=== PATIENT | female | born 1950 | race Caucasian/White ===

== ENCOUNTER 2019-08-25 14:49 | Outpatient (CLI) | payer MEDICARE, OTHER, SELFPAY ==
--- NOTE | 2019-08-25 14:52 | MM_ITS ---
WS: [id number] BILATERAL SCREENING DIGITAL MAMMOGRAM WITH CAD HISTORY: SCREENING COMPARISON: 10/18/2017 and 03/07/2016 Bilateral CC and MLO views submitted. Computer aided detection analyzed. Breast composition: The breasts are heterogeneously dense, which may obscure small masses. No suspici ous masses, microcalcifications or architectural distortion. Dense fibroglandular tissue in the anter ior breast. Benign scattered calcifications. No distortion or suspicious cluster of calcifications. MM/[id number] IMPRESSION: BI-RADS: 2-Benign FOLLOW UP: 1 Year Follow-up
== END 2019-08-25 14:50 | disposition home or self-care (01) ==
LOC: RADSHAW 14:49
PROVIDERS: Family Provider Family Medicine; PCP Physician Assistant; Visit Provider Physician Assistant
DX: Z12.31 Encounter for screening mammogram for malignant neoplasm of breast (principal)
CPT/HCPCS: 77067

== ENCOUNTER 2019-12-18 10:42 | Outpatient (RCR) | payer MEDICARE, OTHER, SELFPAY | END 2020-01-05 23:59 | disposition home or self-care (01) | LOC: SPT 10:42 | PROVIDERS: PCP Physician Assistant; Referring Provider Physician Assistant; Visit Provider Physician Assistant | DX: M76.30 Iliotibial band syndrome, unspecified leg (principal) | CPT/HCPCS: 97161; 97530 ==

== ENCOUNTER 2020-10-31 11:03 | Outpatient (CLI) | payer MEDICARE, OTHER, SELFPAY ==
--- NOTE | 2020-10-31 11:08 | XR_ITS ---
WS: [id number] Exam: XR DEXA axial skeleton* [id number] Date/Time of Exam: 10/31/2020 11:17 AM Reason For Exam: POST MENOPAUSAL DEXA BONE DENSITOMETRY [employer] The L1-L4 bone mineral density measures 1.230 g/cm2. This corresponds to a T score of 0.4 and Z score of 2.1. Left femoral neck bone mineral density measures 1.037 g/cm2. This corresponds to T score of 0.2 and Z score of 1.7. Right femoral neck bone mineral density measures 1.045 g/cm2. This corresponds to a T score of 0.3 an d Z score of 1.8. Mean femoral neck bone mineral density measures 1.041 g/cm2. This corresponds to a T score of 0.3 and Z score of 1.7. XR/XR DEXA axial skeleton* [id number] IMPRESSION: Bone mineral density lies in the normal range. No osteopenia is observed at th is time. Refer to detailed summary.
== END 2020-10-31 11:04 | disposition home or self-care (01) ==
PROVIDERS: PCP Physician Assistant; Visit Provider Physician Assistant
DX: Z78.0 Asymptomatic menopausal state (principal)
CPT/HCPCS: 77080

== ENCOUNTER 2020-12-14 08:49 | Outpatient (CLI) | payer MEDICARE, OTHER, SELFPAY ==
--- NOTE | 2020-12-14 08:56 | MM_ITS ---
WS: [id number] BILATERAL DIGITAL SCREENING MAMMOGRAPHY WITH CAD CLINICAL INFORMATION: SCREENING HISTORY: Screening mammogram. No current complaints. COMPARISON: August 25, 2019 TECHNIQUE: Bilateral CC and MLO views. FINDINGS: The breasts are composed of heterogeneous fibroglandular density tissue, which can limit the detectio n of small underlying mass lesions. Punctate and lucent centered calcifications. Dystrophic calcifica tions. No suspicious mass, asymmetry, calcifications, or architectural distortion. No evidence of mal ignancy. MM/[place] [id number] IMPRESSION: BI-RADS: 2-Benign FOLLOW UP: 1 Year Follow-up Recommend return to annual screening mammography.
== END 2020-12-14 08:50 | disposition home or self-care (01) ==
LOC: RADSHAW 08:52
PROVIDERS: PCP Physician Assistant; Visit Provider Physician Assistant
DX: Z12.31 Encounter for screening mammogram for malignant neoplasm of breast (principal)
CPT/HCPCS: 77067

== ENCOUNTER 2023-01-02 08:33 | Outpatient (CLI) | payer MEDICARE, OTHER, SELFPAY ==
--- NOTE | 2023-01-02 | MM_ITS ---
WS: [id number] VIEWS: MLO and CC views both breasts. 3D digital tomosynthesis is also included in this exam. Comparison made with prior exam of 08/06/2011, 12/12/2012, 03/07/2016, 10/18/2017, 08/25/2019, 12/14/2020.. Findings: There was no sign of mass, architectural distortion or suspicious calcification in either breast. Th e breasts are heterogeneously dense which may obscure small masses MM/[place] [id number] Impression: BI-RADS: 2-Benign finding. FOLLOW-UP: 1 Year Follow-up This mammogram was also analyzed by the Computer Aided Detection System [employer]2 Imag [employer] Circular Knitter Helper.
== END 2023-01-02 08:34 | disposition home or self-care (01) ==
PROVIDERS: PCP Physician Assistant; Visit Provider Physician Assistant
DX: Z12.31 Encounter for screening mammogram for malignant neoplasm of breast (principal)
CPT/HCPCS: 77063; 77067

== ENCOUNTER 2023-02-05 14:09 | Outpatient (CLI) | payer MEDICARE, OTHER, SELFPAY ==
--- NOTE | 2023-02-05 14:28 | XR_ITS ---
WS: [id number] DEXA (DUAL ENERGY X-RAY ABSORPTIOMETRY) Bone mineral density was performed using a [employer] machine. HISTORY: POSTMENOPAUSAL COMPARISON: 10/31/2020 Lumbar spine BMD (L1-L4): 1.247 g/cm2 T score: 0.6 Z score: 2.3 Total hip BMD: Left: 1.017 g/cm2. T score: 0.1 Z score: 1.7 Right: 1.032 g/cm2. T score: 0.2 Z score: 1.8 10 year probability of a major osteoporotic fracture is 8.8%. Compared to the prior study from 10/31/2020. Lumbar spine bone mineral density has increased by 1.4%. Bilateral hips bone mineral density has decreased by 1.5%. XR/XR DEXA axial skeleton* [id number] IMPRESSION: NORMAL BONE MINERAL DENSITY based upon the WHO classification for females. No significant change in bone mineral density since the most recent exam.
== END 2023-02-05 14:10 | disposition home or self-care (01) ==
LOC: RAD 14:16
PROVIDERS: PCP Physician Assistant; Visit Provider Physician Assistant
DX: Z78.0 Asymptomatic menopausal state (principal)
CPT/HCPCS: 77080

== ENCOUNTER 2024-09-03 21:29 | Emergency (ER) | payer MEDICARE, OTHER, SELFPAY ==
[2024-09-03 21:32] VITALS: BP 150/80; PULSE 96; TEMP 36.5; O2SAT 98; BMI 25.4
--- NOTE | 2024-09-03 22:26 | W.ED.ABDPA2 ---
HPI - Abdominal Pain General: Chief Complaint: Abdominal Pain Stated Complaint: severe abd pain sudden 2hrs Time Seen by Provider: 09/03/24 21:38 History of Present Illness: 74-year-old female who presents emergency room with epigastric pain that came on suddenly. This started couple hours ago. Has become much worse. She is very tender in her epigastric region. She is never had any abdominal surgeries. No nausea or vomiting. No diarrhea. No chest pain. No shortness of breath. No fever. No cough. Related Data Home Medications ?Medication ?Instructions ?Recorded ?Confirmed amlodipine 5 mg tablet 5 mg PO DAILY 07/30/21 07/30/21 amoxicillin 500 mg tablet 500 mg PO BID 07/30/21 07/30/21 glucosamine-chondroitin 250 mg-200 2 tab PO TID 07/30/21 07/30/21 mg tablet (Osteo Bi-Flex) lutein 20 mg tablet 20 mg PO DAILY 07/30/21 07/30/21 metoprolol succinate 50 mg 75 mg PO DAILY 07/30/21 07/30/21 tablet,extended release 24 hr (Toprol XL) quinapril 20 1 tab PO DAILY 07/30/21 07/30/21 mg-hydrochlorothiazide 12.5 mg tablet simvastatin 20 mg tablet 20 mg PO DAILY 07/30/21 07/30/21 Previous Rx's ?Medication ?Instructions ?Recorded acyclovir 800 mg tablet 800 mg PO .COMPLEX 7 days #35 tabs 07/30/21 Allergies Allergy/AdvReac Type Severity Reaction Status Date / Time No Known Allergies Allergy Verified 09/03/24 21:36 Review of Systems Narrative: Constitutional symptoms: Negative except as documented in HPI. Skin symptoms: Negative except as documented in HPI. Eye symptoms: Negative except as documented in HPI. ENMT symptoms: Negative except as documented in HPI. Respiratory symptoms: Negative except as documented in HPI. Cardiovascular symptoms: Negative except as documented in HPI. Gastrointestinal symptoms: Negative except as documented in HPI. Genitourinary symptoms: Negative except as documented in HPI. Musculoskeletal symptoms: Negative except as documented in HPI. Neurologic symptoms: Negative except as documented in HPI. Psychiatric symptoms: Negative except as documented in HPI. Endocrine symptoms: Negative except as documented in HPI. PFS ED PFSH: Social History (Updated 07/30/21 @ 10:39 by Alonso Garnett LPN) Smoking and tobacco/nicotine status: never used tobacco/nicotine Alcohol intake: current Alcohol intake frequency: holidays/special occasions only Physical Exam Narrative: EXAM NARRATIVE: General: Alert, no acute distress. Skin: Warm, dry. Head: Normocephalic, atraumatic. Neck: Supple, trachea midline. Eye: Extraocular movements are intact. Ears, nose, mouth and throat: mucosa moist. Cardiovascular: Regular, Normal peripheral perfusion. Respiratory: Lungs are clear to auscultation, respirations are non-labored, breath sounds are equal, Symmetrical chest wall expansion. Gastrointestinal: Soft, patient is extremely tender in her epigastric region, Non distended Musculoskeletal: Normal ROM, no deformity. Neurological: Alert and oriented, No focal neurological deficit observed. Psychiatric: Cooperative, appropriate mood & affect. Course Vital Signs: Vital signs: Vital Signs Temperature 97.7 F 09/03/24 21:32 Pulse Rate 96 09/03/24 21:32 Blood Pressure 150/80 09/03/24 21:32 Pulse Oximetry 98 09/03/24 21:32 Oxygen Delivery Me thod Room Air 09/03/24 21:32 MDM - Abdominal Pain Medical Decision Making Medical decision making: Differential diagnosis including but not limited to and based on the above HPI, review of systems and physical exam: In this patient with epigastric pain differential would include cholelithiasis or cholecystitis. Hepatitis. Diverticulitis. Constipation. UTI. colitis. small bowel obstruction. crohn's flare. pancreatitis. gastritis. peptic ulcer. also concern for acute cardiac event. Orders placed to evaluate differential diagnosis based on the above differential, HPI and physical exam EKG: Time 12:23 AM. Rate 81. Normal sinus rhythm, No ST-T changes, no ectopy, normal MS & QRS intervals, This was reviewed and interpreted by myself the ER physician at 12:30 AM Lab Review: Laboratory results were reviewed and interpreted by myself the emergency room physician. Mild leukocytosis with white count 12. No anemia. No renal failure. Lipase is negative. Liver enzymes are normal. Urinalysis shows no signs of infection. Flu COVID and RSV are negative. CT of the abdomen pelvis with contrast: Cystic lesions in the liver. 6.5 cm cyst in the left hepatic lobe. There is also a lesion centrally in the liver may just be a focal fatty infiltration but neoplasm cannot be ruled out. MRI as an outpatient. I discussed these findings with the patient. No acute processes. This was reviewed and interpreted by myself the emergency room physician. I also reviewed the radiology report. I reviewed the patient's medical record. Reexamination: Pain is almost completely resolved. She reports that it still hurts some when she pushes or moves. No vomiting. We discussed findings. Discussed that she needs follow-up on the findings in her liver. Assessment and plan: Epigastric pain ? Morphine and Zofran in the emergency room with improvement of symptoms. - Discharged home - Discussed plan with patient. Answered any questions. - Evaluation and treatment of this problem were appropriate in the emergency setting. Lab Data 09/03/24 22:20 09/03/24 22:20 Labs/Radiology: Radiology Impressions Abdomen/Pelvis CT 09/03/24 23:03 IMPRESSION: 1. Irregular peripheral and somewhat geographic hypoattenuating 2.4 x 3.0 cm lesion centrally in the liver involving segments 4 and 8. While this could represent focal fatty infiltration, malignant neoplasm is in the differential. Further evaluation with nonemergent MRI liver protocol without and with contrast is recommended. 2. 6.5 cm cyst located laterally in the left hepatic lobe. 3. No evidence of acute abdominal or pelvic process. COMMENTS: Consistent with the [employer] [employer]'s Incidental Findings Committee white paper (J Am Lois Radiol 2018): Any incidental renal lesion less than 1 cm or classified as too small to characterize, or any incidental cystic renal lesion characterized as simple-appearing, is likely benign. No follow-up imaging is recommended for these lesions per consensus recommendations based on imaging criteria. Laboratory Results WBC 11.84 10^3/uL (3.29-11.43) H 09/03/24 22:20 RBC 6.00 10^6/uL (3.85-5.65) H 09/03/24 22:20 Hgb 16.50 g/dL (11.27-16.99) 09/03/24 22:20 Hct 47.7 % (36-47) H 09/03/24 22:20 MCV 79.5 fl (85-98) L 09/03/24 22:20 MCH 27.5 pg (27-33) 09/03/24 22:20 MCHC 34.6 g/dL (30-55) 09/03/24 22:20 RDW 13.0 % (12.1-15.1) 09/03/24 22:20 Plt Count 285 10^3/cmm (157-399) 09/03/24 22:20 MPV 8.3 fL (7.4-10.4) 09/03/24 22:20 Neut % (Auto) 70.8 % 09/03/24 22:20 Lymph % (Auto) 19.3 % 09/03/24 22:20 [place] % (Auto) 8.0 % 09/03/24 22:20 Eos % (Auto) 1.0 % 09/03/24 22:20 Baso % (Auto) 0.5 % 09/03/24 22:20 Neut # (Auto) 8.37 10^3/uL (1.8-7.7) H 09/03/24 22:20 Lymph # (Auto) 2.3 10^3/uL (0.8-4.8) 09/03/24 22:20 [place] # (Auto) 1.0 10^3/uL (0.2-0.9) H 09/03/24 22:20 Eos # (Auto) 0.1 10^3/uL (0.0-0.8) 09/03/24 22:20 Baso # (Auto) 0.1 10^3/uL (0.0-0.1) 09/03/24 22:20 Nucleated RBC % (auto) 0 % 09/03/24 22:20 Nucleated RBCs # 0.0 /100WBC 09/03/24 22:20 Sodium 131 mmol/L (136-145) L 09/03/24 22:20 Potassium 3.3 mmol/L (3.5-5.1) L 09/03/24 22:20 Chloride 91 mmol/L (98-107) L 09/03/24 22:20 Carbon Dioxide 23 mmol/L (22-29) 09/03/24 22:20 Anion Gap 20.3 (5-19) H 09/03/24 22:20 BUN 10 mg/dL (8-23) 09/03/24 22:20 Creatinine 0.6 mg/dL (0.5-0.9) 09/03/24 22:20 GFR Calculation Not Reportable 09/03/24 22:20 Glucose 230 mg/dL (65-115) H 09/03/24 22:20 Calculated Osmolality 278 mOsm/kg (285-295) L 09/03/24 22:20 Lactic Acid 3.6 mmol/L (0.5-2.2) H 09/03/24 22:20 Lactic Acid (Sepsis) 3.2 mmol/L (0.5-2.2) H 09/04/24 00:33 Calcium 10.1 mg/dL (8.5-10.5) 09/03/24 22:20 Total Bilirubin 1.1 mg/dL (0.15-1.2) 09/03/24 22:20 AST 19 U/L (0-32) 09/03/24 22:20 ALT 20 U/L (0-33) 09/03/24 22:20 Alkaline Phosphatase 84 U/L (35-105) 09/03/24 22:20 Troponin T Baseline 12 ng/L (0-10) H 09/03/24 22:20 Troponin T 120 Minute 12.98 ng/L (0-10) H 09/04/24 00:33 Delta Troponin T 0.98 ABS# (0-10) 09/04/24 00:33 C-Reactive Protein 6.2 mg/L (0.0-4.9) H 09/03/24 22:20 Total Protein 7.7 g/dL (6.6-8.7) 09/03/24 22:20 Albumin 4.6 g/dL (3.5-5.2) 09/03/24 22:20 Globulin 3.1 g/dL (1.3-4.6) 09/03/24 22:20 Lipase 18 U/L (13-60) 09/03/24 22:20 Urine Color Yellow (Yellow) 09/04/24 00:00 Urine Appearance Clear (CLEAR) 09/04/24 00:00 Urine pH 8.0 (5-7) A 09/04/24 00:00 Ur Specific [place] 1.021 (1.005-1.030) 09/04/24 00:00 Urine Protein Negative (Negative) 09/04/24 00:00 Urine Glucose (UA) Negative (Normal) 09/04/24 00:00 Urine Ketones Negative (Negative) 09/04/24 00:00 Urine Blood Negative (Negative) 09/04/24 00:00 Urine Nitrate Negative (Negative) 09/04/24 00:00 Urine Bilirubin Negative (Negative) 09/04/24 00:00 Urine Urobilinogen 0.2 mg/dL (Negative) 09/04/24 00:00 Ur Leukocyte Esterase Negative (Negative) 09/04/24 00:00 Urine RBC None /hpf (0-2) 09/04/24 00:00 Urine WBC None /hpf (0-5) 09/04/24 00:00 Ur Squamous Epith Cells None /hpf (0-5) 09/04/24 00:00 Amorphous Sediment Not Reportable 09/04/24 00:00 Urine Bacteria None /hpf (NONE) 09/04/24 00:00 Influenza A (PCR) Negative (Negative) 09/04/24 00:25 Influenza Type B (PCR) Negative (Negative) 09/04/24 00:25 RSV (PCR) Negative (Negative) 09/04/24 00:25 SARS-CoV-2 (PCR) Negative (Negative) 09/04/24 00:25 All radiology interpretation(s) finalized by discharge Discharge Plan Discharge Patient Disposition: Home Clinical Impression: Acute epigastric pain Condition: Stable Prescriptions: No Action metoprolol succinate [Toprol XL] 50 mg tablet extended release 24 hr 75 mg PO DAILY amoxicillin 500 mg tablet 500 mg PO BID quinapril-hydrochlorothiazide 20-12.5 mg tablet 1 tab PO DAILY simvastatin 20 mg tablet 20 mg PO DAILY amlodipine 5 mg tablet 5 mg PO DAILY glucosamine-chondroitin [Osteo Bi-Flex] 250-200 mg tablet 2 tab PO TID Rx Instructions: give after food/meal lutein 20 mg tablet 20 mg PO DAILY Rx Instructions: give with meal/snack acyclovir 800 mg tablet 800 mg PO .COMPLEX 7 Days Qty: 35 0RF Rx Instructions: 800 mg PO 5 times daily for 7 days; Discharge Orders: Discharge ED (Routine); Ordered 09/04/24 Ordered By: Calista Hannon Referrals: Sendy Centneo PA [Primary Care Provider] - Discharge Diet: Usual diet Discharge Activity: Increase activity as tolerated Patient Instructions: Abdominal Pain (ED), Opioid Safety, Pain Management Activity Restrictions/Additional Instructions: You will need an MRI as an outpatient ordered by your primary care provider to evaluate abnormal findings in your liver. Thank you for choosing [facility] for your healthcare needs today. Please realize this is an emergency room and that we are providing you with a medical screening exam and this may not be complete and all inclusive of all the testing and or work up that you may need to determine your ailment or severity of your illness. You have been screened and evaluated and felt safe for discharge. Health conditions do change or evolve sometimes and as such it is important that you follow up with your Primary Doctor to be re checked, 3-5 days is a general good time frame for follow up. You are always welcome to return to the ED for re assessment if your symptoms are worsening or you have new concerns Print Language: Kyrgyz Coding Level of Care Code ED Air Traffic Control Equipment Repairer for Mayela Figueroa
[2024-09-03 22:33] LABS: Basophils # 0.1 10^3/uL (0.0-0.1); Basophils % 0.5 %; Eosinophils # 0.1 10^3/uL (0.0-0.8); Hematocrit 47.7 % (36-47); Lymphocytes # 2.3 10^3/uL (0.8-4.8); Lymphocytes % 19.3 %; Mean Corpuscular HGB Conc 34.6 g/dL (30-55); Mean Corpuscular Hemoglobin 27.5 pg (27-33); Mean Corpuscular Volume 79.5 fl (85-98); Mean Platelet Volume 8.3 fL (7.4-10.4); Neutrophils # 8.37 10^3/uL (1.8-7.7); Neutrophils % 70.8 %; Nucleated Red Blood Cells % 0 %; Platelet Count 285 10^3/cmm (157-399); White Blood Count 11.84 10^3/uL (3.29-11.43)
[2024-09-03] MEDS: morphine 4 mg/mL SDV 1 mL IVP (22:44)
[2024-09-03] MEDS: ondansetron 2 mg/ML SDV 2 mL 4 MG IVP (22:44)
[2024-09-03 22:53] LABS: Alanine Aminotransferase 20 U/L (0-33); Albumin Level 4.6 g/dL (3.5-5.2); Alkaline Phosphatase 84 U/L (35-105); Anion Gap 20.3 (5-19); Aspartate Amino Transferase 19 U/L (0-32); Blood Urea Nitrogen 10 mg/dL (8-23); C Reactive Protein 6.2 mg/L (0.0-4.9); Calcium 10.1 mg/dL (8.5-10.5); Carbon Dioxide 23 mmol/L (22-29); Chloride 91 mmol/L (98-107); Creatinine Clr Calc Pharmacy 51.7893; Globulin 3.1 g/dL (1.3-4.6); Glucose 230 mg/dL (65-115); Lactic Sepsis W/Reflex 3.6 mmol/L (0.5-2.2); Lipase 18 U/L (13-60); Osmolality Calculated 278 mOsm/kg (285-295); Potassium 3.3 mmol/L (3.5-5.1); Sodium 131 mmol/L (136-145); Total Bilirubin 1.1 mg/dL (0.15-1.2); Total Protein 7.7 g/dL (6.6-8.7)
[2024-09-03 22:57] LABS: Troponin(5th) Baseline 12 ng/L (0-10)
--- NOTE | 2024-09-03 23:03 | CTR_ITS ---
PROCEDURE INFORMATION: Exam: CT Abdomen And Pelvis With Contrast Exam date and time: 09/03/2024 11:17 PM Age: 74 years old Clinical indication: Abdominal pain; Epigastric TECHNIQUE: Imaging protocol: Computed tomography of the abdomen and pelvis with contrast. Radiation optimization: All CT scans at this facility use at least one of these dose optimization techniques: automated exposure control; mA and/or kV adjustment per patient size (includes targeted exams where dose is matched to clinical indication); or iterative reconstruction. Contrast material: OMNI 350; Contrast volume: 100 ml; Contrast route: INTRAVENOUS (IV); COMPARISON: CR XR hip LT 2-3V wo/w pel* [id number] 10/22/2023 2:20 PM RADIATION DOSE METRICS: Total DLP (mGy-cm): 442.4 FINDINGS: Lungs: Bibasilar dependent atelectasis. Liver: Irregular peripheral and somewhat geographic hypoattenuating 2.4 x 3.0 cm lesion centrally in the liver involving segments 4 and 8. 6.5 cm cyst located laterally in the left hepatic lobe. Gallbladder and biliary ducts: Normal. No calcified stones. No ductal dilation. Pancreas: Normal. No ductal dilation. Spleen: Normal. No splenomegaly. Adrenal glands: Normal. No mass. Kidneys and ureters: Nonspecific low-density foci of the kidneys statistically favor benign cysts, no follow-up imaging is recommended, as large as 7 mm. Stomach and bowel: Colonic diverticulosis is present without diverticulitis. Appendix: No evidence of appendicitis. Intraperitoneal space: Unremarkable. No free air. No significant fluid collection. Vasculature: Aortoiliac atherosclerotic disease is seen without evidence of aneurysm. Lymph nodes: Unremarkable. No enlarged lymph nodes. Urinary bladder: Unremarkable as visualized. Reproductive: 9 mm calcified lesion in the uterus, likely fibroid. Adnexal regions are unremarkable. Bones/joints: Unremarkable. No acute fracture. Soft tissues: Unremarkable. CT/CT abdomen pelvis w con* [id number] IMPRESSION: 1. Irregular peripheral and somewhat geographic hypoattenuating 2.4 x 3.0 cm lesion centrally in the liver involving segments 4 and 8. While this could represent focal fatty infiltration, malignant neoplasm is in the differential. Further evaluation with nonemergent MRI liver protocol without and with contrast is recommended. 2. 6.5 cm cyst located laterally in the left hepatic lobe. 3. No evidence of acute abdominal or pelvic process. COMMENTS: Consistent with the [place] [employer]'s Incidental Findings Committee white paper (J Am Lois Radiol 2018): Any incidental renal lesion less than 1 cm or classified as too small to characterize, or any incidental cystic renal lesion characterized as simple-appearing, is likely benign. No follow-up imaging is recommended for these lesions per consensus recommendations based on imaging criteria.
[2024-09-03] MEDS: iohexol 350 mg/mL 500 mL Btl (per mL) IV (23:21)
[2024-09-04 00:18] LABS: Reflex Lactate Order REFLEX LACTIC ORDERD
--- NOTE | 2024-09-04 00:23 | ECG_ITS ---
[email or web address]: 2024-09-04 Pat Name: Laura Damon Department: Room: Gender: Female Director Biology: : 1950 Requested By: Calista Glaser Order Number: [id number] Sohan MD: Alexis Cobb M.D. Measurements Intervals [place] Rate: 81 P: 29 MO: 155 QRS: 41 QRSD: 89 T: 0 QT: 353 QTc: 410 Interpretive Statements SINUS RHYTHM NONSPECIFIC T-WAVE ABNORMALITY No previous ECG available for comparison Electronically Signed On 09-05-2024 08:19:25 STRAIGHTENING PRESS OPERATOR HELPER by Alexis Cobb M.D. [email or web address]
[2024-09-04 00:32] LABS: Bilirubin Urine Negative (Negative); Blood Urine Negative (Negative); Glucose Urine UA Negative (Normal); Ketones Urine Negative (Negative); Leukocyte Esterase Urine Negative (Negative); Nitrate Urine Negative (Negative); Protein Urine Negative (Negative); Specific Gravity, Urine 1.021 (1.005-1.030); Urine Appearance Clear (CLEAR); Urine Color Yellow (Yellow); Urobilinogen Urine 0.2 mg/dL (Negative)
[2024-09-04 00:57] LABS: Lactic Acid level (Lactate) 3.2 mmol/L (0.5-2.2)
[2024-09-04 00:59] LABS: Troponin 5 2HR 12.98 ng/L (0-10); Troponin 5 2HR Delta 0.98 ABS# (0-10)
[2024-09-04 01:06] LABS: Influenza A NEGATIVE (Negative); Influenza B NEGATIVE (Negative); Respiratory Syncytial Virus Ce NEGATIVE (Negative); SARS-CoV-2 PCR NEGATIVE (Negative)
[2024-09-04 01:28] VITALS: BP 132/70; PULSE 87; RESP 18; O2SAT 92
[2024-09-04] MEDS: HYDROcodone-acetaminophen 5-325 mg Tablet 2 TAB PO (01:35)
== END 2024-09-04 01:40 | disposition home or self-care (01) ==
PROVIDERS: Emergency Provider Emergency Medicine; PCP Physician Assistant
DX: R10.13 Epigastric pain (principal); Z11.52 Encounter for screening for COVID-19
CPT/HCPCS: 36415; 74177; 80053; 81001; 83605; 83690; 84484; 85025; 86140; 87040; 87637; 93005; 96374; 96375; 99285; J2270; J2405

== ENCOUNTER 2024-09-25 11:26 | Outpatient (CLI) | payer MEDICARE, OTHER, SELFPAY ==
--- NOTE | 2024-09-25 11:32 | MRR_ITS ---
PROCEDURE INFORMATION: Exam: MR Abdomen with Contrast; Liver Exam date and time: 09/25/2024 11:51 AM Age: 74 years old Clinical indication: Condition or disease; Liver condition; Abd pain/liver mass was seen on a CT abd/pel scan on 09/03/24 TECHNIQUE: Imaging protocol: MR Abdomen with contrast. Exam focused on the liver. 14 cc MultiHance. COMPARISON: CT abdomen pelvis w con* [id number] 09/03/2024 11:17 PM FINDINGS: Liver: There is a simple cyst in the left hepatic lobe measuring 4.8 x 5.6 cm. Corresponding to the findings seen on the CT scan at right hepatic lobe segment 4/8 there is a hyperintense T1 weighted area measuring 3 x 1.5 cm on the in phase image. On the out of phase, there is loss of signal compatible with microscopic fatty tissue. This does not show enhancement. Gallbladder and biliary ducts: Gallbladder sludge is seen. Pancreas: The pancreas is normal. Spleen: The spleen is normal. Adrenal glands: Adrenal glands are unremarkable. Kidneys: Tiny simple renal cysts are seen. Intraperitoneal space: No free fluid. Lymph nodes: No enlarged nodes. Bones/joints: Unremarkable. No suspicious lesions. MR/MR abdomen wo/w con* [id number] IMPRESSION: 1. Microscopic fatty tissue corresponding to the findings seen on the CT scan. 2. Gallbladder sludge is seen. 3. Additional findings as described. COMMENTS: Consistent with the [employer]'s Incidental Findings Committee white paper (J Am Lois Radiol 2018): Any incidental renal lesion less than 1 cm or classified as too small to characterize, or any incidental cystic renal lesion characterized as simple-appearing, is likely benign. No follow-up imaging is recommended for these lesions per consensus recommendations based on imaging criteria.
[2024-09-25] MEDS: gadobenate dimeglumine 20 mL vial IV (16:35)
== END 2024-09-25 11:27 | disposition home or self-care (01) ==
PROVIDERS: PCP Physician Assistant; Visit Provider Physician Assistant
DX: R16.0 Hepatomegaly, not elsewhere classified (principal); R93.3 Abnormal findings on diagnostic imaging of other parts of digestive tract; K76.89 Other specified diseases of liver; R93.2 Abnormal findings on diagnostic imaging of liver and biliary tract
CPT/HCPCS: 74183